=== PATIENT | male | born 1975 | race Caucasian/White ===

== ENCOUNTER 2019-12-09 07:03 | Inpatient (IN) | payer MEDICAID, SELFPAY ==
[~2019-12-09] VITALS: Ht 177.8 cm; Wt 163.8 kg
[2019-12-09] MEDS ORDERED: SODIUM CHLORIDE 0.9% 1,000 ML IV ONE (07:34)
[2019-12-09 08:52] LABS: Basophils # (auto) 0 10 ^3/uL (0-0.2); Basophils % (auto) 0.7 % (0.0-2.0); Eosinophils # (auto) 0.1 10 ^3/uL (0-0.8); Eosinophils % (auto) 2.7 % (0.0-7.0); Hematocrit 52.7 % (41.0-53.0); Hemoglobin 16.2 g/dL (13.5-17.5); Lymphocytes # (auto) 0.9 10 ^3/uL (0.4-5.4); Lymphocytes % (auto) 18.4 % (10.0-50.0); Mean Corpuscular Hgb Conc. 30.7 g/dL (32.0-36.0); Mean Corpuscular Volume 84.8 fL (80.0-100.0); Monocytes # (auto) 0.5 10 ^3/uL (0-1.3); Monocytes % (auto) 10.5 % (0.0-12.0); Neutrophils # (auto) 3.4 10 ^3/uL (1.6-8.6); Neutrophils % (auto) 67.7 % (37.0-80.0); Nucleated Red Blood Cells % 0.4 %; Platelet Count (auto) 207 10^3/uL (140-450); Red Blood Cells 6.22 10^6/uL (4.5-5.90)
[2019-12-09 08:57] LABS: INR 1.35 (0.9-1.15); Partial Thromboplastin Time 25.7 sec (23.64-32.05)
[2019-12-09 09:01] LABS: Calcium 8.2 mg/dL (8.5-10.1); Potassium 4.3 mmol/L (3.5-5.1)
[2019-12-09 09:06] LABS: BUN/Creatinine Ratio 16.3; Bilirubin, Total 0.9 mg/dL (0.2-1.0); Total Protein 6.9 g/dL (6.4-8.2)
[2019-12-09] MEDS ORDERED: SILVER SULFADIAZINE 1 % TOPICAL CREAM 50GM TOP ONE (09:15)
[2019-12-09] MEDS ORDERED: IOHEXOL 350 MG/ML 100ML IJ ONE (09:20)
[2019-12-09] MEDS ORDERED: FUROSEMIDE 40 MG/4 ML VIAL IV ONE (12:15)
[2019-12-09] MEDS ORDERED: SPIRONOLACTONE 25 MG TAB PO ONE (12:15)
[2019-12-09] MEDS ORDERED: FUROSEMIDE 100 MG/10ML VIAL IV ONE (12:30)
[2019-12-09 12:58] LABS: Urine Amorphous Crystal FEW /hpf (None Seen); Urine Bacteria FEW /hpf (None Seen); Urine Blood Negative /uL (Negative); Urine Hyaline Cast MOD /lpf (0 - 2); Urine Mucus FEW (None Seen); Urine Specific Gravity 1.013 (1.001-1.035); Urine WBC 2 /hpf (0 - 3)
[2019-12-09 13:06] LABS: Alcohol, Urine < 3.0 mg/dL (0-5); Amphetamine Screen, Urine NEGATIVE (NEGATIVE); Barbiturate Scree,Urine NEGATIVE (NEGATIVE); Benzodiazephine Screen, Urine NEGATIVE (NEGATIVE); Cannabinoid Screen, Urine NEGATIVE (NEGATIVE); Cocaine Screen, Urine NEGATIVE (NEGATIVE); Opiate Scree,Urine NEGATIVE (NEGATIVE); Phencyclidine Screen, Urine NEGATIVE (NEGATIVE)
[2019-12-09] MEDS ORDERED: HYDROmorphone HCL 2 MG/ML VL IV ONE (14:15)
[2019-12-09] MEDS ORDERED: PROMETHAZINE HCL 25 MG/ML 1ML IV ONE (14:15)
[2019-12-09] MEDS ORDERED: ONDANSETRON HCL 4 MG/2 ML VIAL IV PRN (16:00)
[2019-12-09] MEDS ORDERED: NITROGLYCERIN 0.4 MG SL TAB SL PRN (16:00)
[2019-12-09] MEDS ORDERED: MORPHINE SULF INJ 2 MG/ML SYRINGE 1ML IV PRN (16:00)
[2019-12-09] MEDS ORDERED: ENALAPRILAT 1.25 MG/ML-1ML VIAL IV ONE (16:00)
[2019-12-09] MEDS ORDERED: levoFLOXacin 500MG 100 ML IV ONE (16:00)
[2019-12-09] MEDS ORDERED: LACTULOSE 20Gm/30ML SOLN PO PRN (16:00)
[2019-12-09] MEDS ORDERED: ACETAMINOPHEN 500 MG TAB PO PRN (16:00)
[2019-12-09] MEDS ORDERED: ASPirin 81 mg TAB PO ONE (16:30)
--- NOTE | 2019-12-09 17:39 | NUR ---
BARIATRIC BED: Total care Bariatric Bed [facility] at [facility],Reference # [id number]; ETA 12/09/19 @1610, Call Nicolas Hogan if need to follow up at [phone] Addendum: 12/09/19 at 1741 by Samantha De La Fuente RN Amended: Links added.
--- NOTE | 2019-12-09 18:22 | NUR ---
WOUND CARE NOTE: Wound care in to see patient per wound care request regarding BLE wounds that are noted present on admission. Patient is 44 years old male with admitting diagnosis of heart Failure, Abd wall cellulitis, LE Cellulitis. Patient is resting in ER bed #12. Patient's eyes are closed, respond to tactile and painful stimuli. Patient's ER nurse, ASH Almeida reported that patient recently medicated. Noted patient's BLE has weeping edema and erythema with multi open ulceration. Rt caraballo has 9x3cm open ulceration with red wound bed. Rt calf has 2x2 cm open ulceration with yellow slough. L lateral lower leg and calf has multi open ulceration (1x1cm) with red wound bed and multi open and closed serum blisters to L posterolateral lower leg. Patient's BLE are weeping with moderate amount of serous drainage, no odor noted. Wound culture specimen reported taken and sent to lab for processing. Cleansed BLE wounds with wound cleanser and photograph are taken for reference. Applied Thera honey gauze to multi open ulceration, covered with Opti lock dressing and secured with Stockinette. Patient noted with large abdominal girth and very erythremic to upper and lower abdominal area. Unable to turn to assess sacral and back as patient is obese and not helping in turning, requiring max assist in turning. Patient tolerated well. Patient has pending cardiology consult. RECOMMENDATION: Nursing to continue with Daily/PRN dressing change BLE wound per MD order,BID/PRN cleaning and application of Barrier cream to sacral buttocks, abdominal fold as preventative, Dietary consult, frequent turning and repositioning schedule as condition permits,redistribute pressure points with pillows, Bariatric air bed (ordered), elevate affected extremity on pillows,continue monitoring by wound care while patient is hospitalized. Addendum: 12/09/19 at 1901 by Samantha De La Fuente RN Amended: Links added. Addendum: 12/10/19 at 1817 by Samantha De La Fuente RN 12/10/19 @ 1040 Wound care able to assess patient's sacral and back with the assistance of patient's bedside nurse, ASH Guido. NO wound noted other than blanchable mild redness to buttocks. Applied Z Guard cream as preventative.
[2019-12-09 18:52] VITALS: BP 142/75
[2019-12-09 20:30] VITALS: BP 145/62
--- NOTE | 2019-12-09 20:40 | NUR ---
PT TRANSPORTED TO [facility] 264 ON AN 8 LPM OXYMIZER AND TOLERATING WELL. SAT 94%. BIPAP PLACED AT BEDSIDE AND PT LEFT ON OXYMIZER. RN MATTI TO CALL IF PT NEEDS BIPAP OR BECOMES DISTRESSED.
[2019-12-09 20:43] VITALS: BP 153/87
--- NOTE | 2019-12-09 20:50 | NUR ---
RECEIVED REPORT FROM ER NURSE POC REVIEWED, PT TRANSFERRED INTO RM 264, RESP EVEN AND UNLABORED, PLACED ON OX 9 L, POSITIONED WITH HOB UP, ALL QUESTIONS AND CONCERNS ADDRESSED
[2019-12-09 21:20] VITALS: BP 153/87
[2019-12-09] MEDS: ATORVASTATIN 20 MG TAB PO SCH (21:31)
[2019-12-09] MEDS: traMADol HCL 50 MG TAB PO PRN (21:31)
[2019-12-09] MEDS: CARVEDILOL 3.125 MG TAB PO SCH (21:31)
[2019-12-09] MEDS: CLINDAMYCIN 600MG IV 50 ML IV SCH (21:32)
--- NOTE | 2019-12-09 22:25 | NUR ---
PAIN RELIEVED WITH MED GIVEN, RESTING WITH HOB UP RESP EVEN AND UNLABORED ON 9 liter oximizer sats 92%
[2019-12-10] VITALS (8 sets, daily range): BP systolic 97–134; BP diastolic 57–94
[2019-12-10 03:38] LABS: Basophils # (auto) 0 10 ^3/uL (0-0.2); Eosinophils # (auto) 0.1 10 ^3/uL (0-0.8); Eosinophils % (auto) 0.9 % (0.0-7.0); Lymphocytes # (auto) 0.6 10 ^3/uL (0.4-5.4); Mean Corpuscular Hgb Conc. 29.6 g/dL (32.0-36.0); Monocytes # (auto) 0.6 10 ^3/uL (0-1.3); White Blood Cell 6.6 10^3/uL (4.4-10.8)
[2019-12-10 03:39] LABS: Basophils % (auto) 0.3 % (0.0-2.0); Hematocrit 54.1 % (41.0-53.0); Lymphocytes % (auto) 8.7 % (10.0-50.0); Mean Corpuscular Hemoglobin 25.7 pg (28.0-32.0); Mean Corpuscular Volume 86.8 fL (80.0-100.0); Monocytes % (auto) 8.7 % (0.0-12.0); Neutrophils # (auto) 5.4 10 ^3/uL (1.6-8.6); Neutrophils % (auto) 81.4 % (37.0-80.0); Nucleated Red Blood Cells % 0.4 %; Platelet Count (auto) 224 10^3/uL (140-450); Red Blood Cells 6.24 10^6/uL (4.5-5.90)
[2019-12-10 03:53] LABS: BUN/Creatinine Ratio 17.5; Potassium 4.6 mmol/L (3.5-5.1)
--- NOTE | 2019-12-10 03:53 | NUR ---
NO CHANGE RESTING WITH HOB UP RESP EVEN AND UNLABORED, NURSE CALL LIGHT WITHIN REACH
[2019-12-10 03:58] LABS: Bilirubin, Total 1.3 mg/dL (0.2-1.0); Total Protein 7.1 g/dL (6.4-8.2)
[2019-12-10] MEDS ORDERED: FUROSEMIDE 20 MG/2 ML VIAL ONE (06:36)
[2019-12-10] MEDS: CLINDAMYCIN 600MG IV 50 ML IV SCH ×3 (06:43→22:00)
[2019-12-10] MEDS: LEVOTHYROXINE SODIUM 25 MCG TAB PO SCH (06:44)
--- NOTE | 2019-12-10 07:30 | NUR ---
REPORT GIVEN TO AM NURSE POC REVIEWED
[2019-12-10] MEDS: ALBUTEROL SULF 2.5 MG/0.5ML(0.5%) NEB SOLN NEB PRN (07:53)
[2019-12-10] MEDS: levoFLOXacin 500MG 100 ML IV SCH (09:36)
[2019-12-10] MEDS: FUROSEMIDE 100 MG/10ML VIAL IV SCH (09:36)
[2019-12-10] MEDS: POTASSIUM CHL 20 Meq TABLET PO SCH (09:37)
[2019-12-10] MEDS: CARVEDILOL 3.125 MG TAB PO SCH ×2 (09:37→22:00)
[2019-12-10] MEDS: ASPirin 81 mg TAB PO SCH (09:37)
[2019-12-10] MEDS: ENALAPRIL MALEATE 2.5 MG TAB PO SCH (09:38)
[2019-12-10] MEDS: ENOXAPARIN SOD 40 MG/0.4 ML SYRINGE SC SCH (09:38)
[2019-12-10] MEDS ORDERED: levoFLOXacin 500MG 100 ML IV SCH (10:00)
[2019-12-10] MEDS ORDERED: ASPirin 81 mg TAB PO SCH ×2 (10:00)
[2019-12-10] MEDS ORDERED: OPTISON 3ml Vial for INJ IV ONE ×2 (11:15→11:17)
--- NOTE | 2019-12-10 14:07 | NUR ---
AT BEDSIDE MD CHAMBERS AT BEDSIDE.PT BEING PLACED ON BIPAP.
--- NOTE | 2019-12-10 14:22 | NUR ---
Nutrition Assessment Notes Please refer to link for full assessment notes. Est Energy needs: 7804-2285 kcals (12-14 kcal/kgBW) Est Protein needs: 81-101 gms/day (0.8-1.0 gm/kgAdjBW) Will continue to monitor and reassess prn. Addendum: 12/10/19 at [address] Amended: Links added.
--- NOTE | 2019-12-10 15:35 | NUR ---
INCREASED FI02 TO 50% AND READJUSTED PT'S MASK. SATS IMPROVED TO 92%. Addendum: 12/10/19 at 1625 by Lulu Perea RT Amended: Links added.
--- NOTE | 2019-12-10 15:50 | NUR ---
PT SLEEPING ON BIPAP. NO DISTRESS NOTED.
[2019-12-10] MEDS: traMADol HCL 50 MG TAB PO PRN (18:22)
--- NOTE | 2019-12-10 18:27 | NUR ---
BILATERAL DRESSING CHANGED PER WOUND NURSE. PT TOLERATED AND MEDICATED FOR PAIN.
--- NOTE | 2019-12-10 19:30 | NUR ---
Opening Shift Note Received pt on BIPAP. Sitting up in bed sats 95%. Pt alert and oriented times four. Full assessment done see interventions. Bed locked in lowest position. On bariatric specialty bed. Villasenor catheter secured below bladder, draining yellow urine. All questions and concerns addressed at this time.
--- NOTE | 2019-12-10 21:30 | NUR ---
Placed pt on high flow oxymizer at 15L to allow pt to eat dinner. Will place back on bipap after he's done eating. Respirations even and unlabored.
[2019-12-10] MEDS: ATORVASTATIN 20 MG TAB PO SCH (22:00)
--- NOTE | 2019-12-10 22:30 | NUR ---
Pt placed back on bipap at current settings.
[2019-12-11] VITALS (15 sets, daily range): BP systolic 103–117; BP diastolic 54–78
--- NOTE | 2019-12-11 05:17 | NUR ---
Pt requesting to be taken off bipap. Oxymizer placed back on.
--- NOTE | 2019-12-11 06:22 | NUR ---
Respiratory note: Received pt from overnight cashier RT. Pt off BIPAP, wearing 15LPM oxymizer, HR 71, RR 14, SPO2 92%. Pt awake and alert, resting comfortably in bed, pt denies SOB, no s/s of respiratory distress noted. Breath sounds diminished throughout. PRN medneb tx not indicated at this time. ABG drawn as ordered, results to follow.
[2019-12-11] MEDS: CLINDAMYCIN 600MG IV 50 ML IV SCH ×3 (06:29→22:00)
--- NOTE | 2019-12-11 06:50 | NUR ---
Placed pt on BIPAP after reviewing ABG results. Pt is on BIPAP plugged into red outlet, fitted with size medium facial mask. Skin assessed, no redness or breakdown noted at this time. Alarms set and audible. Pt is awake and alert, resting comfortably in bed, tolerating BIPAP well, no s/s of respiratory distress noted. Noc shift RN at bedside and aware. Will continue to monitor.
[2019-12-11] MEDS: LEVOTHYROXINE SODIUM 25 MCG TAB PO SCH (06:51)
--- NOTE | 2019-12-11 06:51 | NUR ---
ABG reviewed with RT. Pt placed back on BIPAP with previous ordered settings.
--- NOTE | 2019-12-11 07:17 | NUR ---
Report given to day shift RN.
--- NOTE | 2019-12-11 08:00 | NUR ---
Opening Shift Note Assumed care of patient, patient on Bipap, sleeping at this time, woke up by calling his name. No S/S of distress/SOB or pain noted. Instructed on POC and to call for assist PRN, will continue to monitor for changes Q1hr and PRN.
[2019-12-11 08:11] LABS: Free T4 (Free Thyroxine) 1.13 ng/dL (0.89-1.76)
[2019-12-11 08:13] LABS: Free T3 2.36 pg/mL (2.3-4.2)
--- NOTE | 2019-12-11 08:20 | NUR ---
Changed to Oxymizer 15 LPM for having Breakfast, sitting up with high burns position.
--- NOTE | 2019-12-11 08:45 | NUR ---
Patient had 100 % of Breakfast, plan to place Bipap back at 9.30Am, Informed RT at the bedside as well.
--- NOTE | 2019-12-11 09:25 | NUR ---
Dr. Santos at the bedside, seen patient at this time, plan of care discussed with patient, informed patient about the test (pulmonary function test) after D/C from the hospital.
[2019-12-11] MEDS: FUROSEMIDE 100 MG/10ML VIAL IV SCH (09:29)
[2019-12-11] MEDS: ENOXAPARIN SOD 40 MG/0.4 ML SYRINGE SC SCH (09:29)
[2019-12-11] MEDS: levoFLOXacin 500MG 100 ML IV SCH (09:29)
[2019-12-11] MEDS: ENALAPRIL MALEATE 2.5 MG TAB PO SCH (09:30)
[2019-12-11] MEDS: POTASSIUM CHL 20 Meq TABLET PO SCH (09:30)
[2019-12-11] MEDS: CARVEDILOL 3.125 MG TAB PO SCH ×2 (09:30→22:00)
[2019-12-11] MEDS: ASPirin 81 mg TAB PO SCH (09:30)
--- NOTE | 2019-12-11 09:32 | NUR ---
Called and talked to Dr. Johnston, received order for patient to on BIPAP all the time until MD order to be able to take it off. Informed patient to be NPO from now for BIPAP 24 HOURS, patient made aware, RT at the bedside for BIPAP.
--- NOTE | 2019-12-11 09:32 | NUR ---
Placed pt back on BIPAP on previous settings. Pt to stay on BIPAP, not to take off for lunch/food, RN is aware. Follow-up ABG ordered for 1500. Dr. Santos at bedside. Will carry out orders.
--- NOTE | 2019-12-11 09:40 | NUR ---
Hold Coreg and Enalapril due to HR 59-62/min, BP 108/62mmHg, will continue to monitor and care.
--- NOTE | 2019-12-11 10:56 | NUR ---
Called and spoke to Dr. Santos, confirmed MD that would like to have the ultrasound for both legs again today, called and let Radiology made aware.
--- NOTE | 2019-12-11 11:16 | NUR ---
HR 60-80/min, continue Bipap as a plan. Patient sleeping at this time. RR 14-18/min, O2 saturation 94-96%. Will continue to monitor and care.
--- NOTE | 2019-12-11 13:00 | NUR ---
NPO at this time, able to take a nap. On Bipap, O2 saturation 94-96%, RR 14-18/min.
--- NOTE | 2019-12-11 14:15 | NUR ---
IV insertion IV access obtained, via clean sterile technique by inserting 22 gauge catheter at left hand after 1 attempt. IV secured properly. No trauma to site. Patient tolerated procedure well.
--- NOTE | 2019-12-11 14:30 | NUR ---
IV removal from left AC. IV DC'd with sterile technique, catheter fully intact. Pressure dressing applied to site. Patient tolerated procedure well.
--- NOTE | 2019-12-11 15:15 | NUR ---
Called Dr. Johnston with ABG results, new orders received. Pt to wear BIPAP all night. Follow-up ABG tomorrow morning to be drawn with pt on BIPAP. Educated pt, pt verbalized agreement. Notified RN. Will endorse to noc shift RT.
--- NOTE | 2019-12-11 15:55 | NUR ---
DEPUTY PROGRAM MANAGER DR. CHAMBERS AT BEDSIDE
--- NOTE | 2019-12-11 16:00 | NUR ---
Dr. Johnston at the bedside, seen patient at this time, okay to standby Bipap for Dinner and continue standby after finishing Dinner for 30 minutes then plan to have Bipap on over night, plan made aware.
--- NOTE | 2019-12-11 18:30 | NUR ---
Standby Bipap and changed to Oxymizer for having Dinner.
--- NOTE | 2019-12-11 18:49 | NUR ---
RT NOTE: PT AWAKE AND ALERT EATING DINNER ON 12 LPM OXYMIZER SPO2 92% HR 79, RR 20. NO RESPIRATORY DISTRESS NOTED AT THIS TIME. PT NOTIFIED OF RESPIRATORY CARE PLAN AND NEED OF BIPAP. PT AGREED AND WILL BE PLACED BACK ON BIPAP 30 MINUTED AFTER FINISHING DINNER UNTIL AM.
[2019-12-11] MEDS: ATORVASTATIN 20 MG TAB PO SCH (22:00)
[2019-12-12] VITALS (14 sets, daily range): BP systolic 118–163; BP diastolic 81–108
[2019-12-12] MEDS: CLINDAMYCIN 600MG IV 50 ML IV SCH ×3 (06:00→21:04)
[2019-12-12] MEDS: LEVOTHYROXINE SODIUM 25 MCG TAB PO SCH (06:48)
--- NOTE | 2019-12-12 06:50 | NUR ---
Respiratory note: PT TAKEN OFF BIPAP AND PLACED ON 8 L OXYMIZER. PT IS GRATEFUL TO BE OFF BIPAP AND TOLERATING CHANGE WELL. SPO2 93%. ASH RAMIREZ MADE AWARE OF CHANGES.
--- NOTE | 2019-12-12 08:15 | NUR ---
Opening Shift Note Assumed care of patient, awake and alert. No S/S of distress/SOB or pain. Patient saturation 92% at 8 LPM oxygen via oxymizer. Optilock on BLE. See interventions for complete assessment. Specialty bed locked on low position, side rails up x2, bed alarms on at all times, shaun xavier within reach, instructed on POC and to call for assist PRN, will continue to monitor for changes Q1hr and PRN.
--- NOTE | 2019-12-12 08:45 | NUR ---
Received call from Dr Johnston, updated on patient's status, verbalized understanding. Will carry out new orders.
--- NOTE | 2019-12-12 09:00 | NUR ---
Dr Santos at bedside, updated on patient's status. Patient seen and examined. Will carry out new orders.
[2019-12-12] MEDS: levoFLOXacin 500MG 100 ML IV SCH (10:46)
[2019-12-12] MEDS: ASPirin 81 mg TAB PO SCH (10:47)
[2019-12-12] MEDS: ENALAPRIL MALEATE 2.5 MG TAB PO SCH (10:48)
[2019-12-12] MEDS: CARVEDILOL 3.125 MG TAB PO SCH ×2 (10:48→21:04)
[2019-12-12] MEDS: POTASSIUM CHL 20 Meq TABLET PO SCH (10:48)
[2019-12-12] MEDS: FUROSEMIDE 100 MG/10ML VIAL IV SCH (10:49)
[2019-12-12] MEDS: ENOXAPARIN SOD 40 MG/0.4 ML SYRINGE SC SCH (10:49)
--- NOTE | 2019-12-12 13:00 | NUR ---
Patient out of bed to bedside commode with Aura PT, fall precautions in place. Patient tolerated well.
--- NOTE | 2019-12-12 17:20 | NUR ---
Dr Johnston at bedside, updated on patient's status, verbalized understanding. Patient seen and examined. Received verbal order for social service consult for BIPAP at home. Orders read back and verified. Will carry out.
--- NOTE | 2019-12-12 20:30 | NUR ---
SHIFT OPENING NOTE RECEIVED PATIENT AWAKE, ALERT AND ORIENTED X4. NO SOB, DISTRESS OR PAIN NOTED. ON 10 L OXYMIZER. DURHAM CATH DRAINING YELLOW URINE TO GRAVITY. WOUNDS TO LOWER LEGS WITH DRESSINGS INTACT. ON SPECIALTY BED. PHYSICAL ASSESSMENT COMPLETED, SEE INTERVENTIONS. INSTRUCTED ON POC AND TO CALL FOR ASSIST NEEDED. BED IS IN THE LOWEST POSITION WITH SIDE RAILS P X2, CALL LIGHT IS WITHIN REACH.
[2019-12-12] MEDS: ATORVASTATIN 20 MG TAB PO SCH (21:04)
--- NOTE | 2019-12-12 23:50 | NUR ---
ROUNDS PATIENT IS QUIETLY LAYING IN BED SLEEPING. ON BIPAP. NO SOB, DISTRESS OR PAIN NOTED. WILL CONTINUE TO CLOSELY MONITOR.
--- NOTE | 2019-12-13 00:34 | NUR ---
PT REQUEST TO BE TAKEN OFF BIPAP. PT PLACED ON 8 LPM OXYMIZER AND TOLERATING WELL. HR 61 POX 95% RR 18. PT AWARE TO PAGE IF HE WANTS TO BE PLACED BACK ON BIPAP.
--- NOTE | 2019-12-13 01:15 | NUR ---
MORNING HYGIENE CARE PATIENT HAD A LARGE FORMED BM IN BEDPAN. CLEANSED WITH WARM SOAPY WASH CLOTHES. FULL BED BATH PERFORMED USING WASHCLOTHES. GOWN CHANGED. FULL LINEN CHANGED. PATIENT REPOSITIONED FOR COMFORT. TOLERATED IT WELL.
[2019-12-13 05:00] VITALS: BP 166/109
[2019-12-13] MEDS: CLINDAMYCIN 600MG IV 50 ML IV SCH ×2 (05:40→14:53)
[2019-12-13] MEDS: LEVOTHYROXINE SODIUM 25 MCG TAB PO SCH (05:40)
--- NOTE | 2019-12-13 07:00 | NUR ---
PT ASSESSED FOR PRN HHN TX. PT IS ON 10 L OXYMIZER, SPO2 91%. NO RESPIRATORY DISTRESS. HR87, RR 19. BIPAP AT BEDSIDE AND NOT INDICATED AT THIS TIME. PT AWARE TO HAVE RT PAGED IF TX NEEDED.
--- NOTE | 2019-12-13 07:25 | NUR ---
END OF SHIFT REPORT GIVEN AND CARE ENDORSED TO EDWARD ALEMAN.
[2019-12-13 08:00] VITALS: BP 161/103
--- NOTE | 2019-12-13 08:00 | NUR ---
Opening Shift Note Assumed care of patient, awake and alert. No S/S of distress/SOB or pain. Patient saturation 91% at 10 LPM oxygen via oxymizer. Optilock on BLE, intact. See interventions for complete assessment. Bed locked on low position, side rails up x2, bed alarms on at all times, call xavier within reach, instructed on POC and to call for assist PRN, will continue to monitor for changes Q1hr and PRN.
--- NOTE | 2019-12-13 08:30 | NUR ---
Received call from Power Tool Repair Technician Taylor Baeza regarding patient's home BIPAP stating "Patient don't have insurance, he can't get anything home." Will inform Dr Johnston.
[2019-12-13] MEDS: FUROSEMIDE 100 MG/10ML VIAL IV SCH (09:51)
[2019-12-13] MEDS: levoFLOXacin 500MG 100 ML IV SCH (09:51)
[2019-12-13] MEDS: ASPirin 81 mg TAB PO SCH (09:52)
[2019-12-13] MEDS: CARVEDILOL 3.125 MG TAB PO SCH ×2 (09:52→22:16)
[2019-12-13] MEDS: POTASSIUM CHL 20 Meq TABLET PO SCH (09:53)
[2019-12-13] MEDS: ENALAPRIL MALEATE 2.5 MG TAB PO SCH (09:54)
[2019-12-13] MEDS: ENOXAPARIN SOD 40 MG/0.4 ML SYRINGE SC SCH (09:54)
--- NOTE | 2019-12-13 10:50 | NUR ---
Patient out of bed to bedside commode with PT, fall precautions in place.
--- NOTE | 2019-12-13 10:55 | NUR ---
D/C Planning Regarding social service order for BIPAP. Patient has no insurance so he has no payer source.
--- NOTE | 2019-12-13 11:03 | NUR ---
Received call from Dr Johnston, updated on patient's status, informed patient will be transferring to Tele floor, verbalized understanding. Will carry out new orders.
--- NOTE | 2019-12-13 11:14 | NUR ---
Patient ambulating around nurse station using walker with Willian PT, fall precautions in place. Patient tolerated four laps.
[2019-12-13 11:49] VITALS: BP 158/87
--- NOTE | 2019-12-13 14:55 | NUR ---
assessment Patient is a 44 year old male who is alert and oriented. Patients cognitive abilities are intact. Prior to admission patient lived home with family and functioned independently. Patient informed me he is able to care for his own ADLs. Per patient he will return home to his prior living arrangements post discharge and family will transport him home. Patient has no insurance. Patient will be assessed by Lyndon Zuniga of [facility]. Patient may qualify for Medi-shaun if she brings back all her paperwork. I have provided patient with resources for [facility], Dr. Vargas, and [facility] urgent care for follow up visits. I have provided patient with a prescription card from community assistance program. Patient informed me he has no safety concerns regarding returning home on discharge. Patient may need home 02 on discharge, but has no payer source. Patient is not working at this time. I informed patient he has a right to speak to a social insurance administrator regarding all care. I informed patient he has a right to participate in any and all discharge planning. Patient does not have a POA and advanced directive. I have offered patient information on POA and advanced directives. I informed the patient the advantages and benefits of having an Advanced Directive. Patient verbalized understanding and agreed to discharge plan. Addendum: 12/13/19 at 1459 by Taylor ACHARYA Amended: Links added.
--- NOTE | 2019-12-13 14:55 | NUR ---
[facility] pt transferred to floor SARAH CHINO transferred to Tele via specialty bed on patient monitor and portable 02. All patient medications and personal belongings including eye glasses, cellphone with polishing machine operator helper transfered with patient to receiving floor. Patient care transfered to Nicolasa ALEMAN.
--- NOTE | 2019-12-13 15:07 | NUR ---
Pt Arrived on Unit Pt arrived on unit from [facility]. Pt is a/ox4 with no s/s of distress or SOB. Pt currently on 10L via oxymizer. Villasenor catheter is present, free of kinks. Safety measures maintained with call light within reach, bed in lowest position and side rails up. Will continue to monitor.
[2019-12-13 15:11] VITALS: BP 146/81
[2019-12-13] MEDS: ceFAZolin 2 GM in D5W 5% 100 ML IV SCH (18:28)
--- NOTE | 2019-12-13 18:33 | NUR ---
Dr Johnston at Bedside MD to see pt. Discussed POC with pt and the need to use bipap. No new orders at this time. Will continue to monitor.
--- NOTE | 2019-12-13 19:40 | NUR ---
Opening Shift Note Assumed care of patient, awake and alert. No S/S of distress/SOB or pain. Instructed on POC and to call for assist PRN. Bed in lowest locked position, call light within reach, side rails up x2, fall precautions in place. Will continue to monitor for changes Q1hr and PRN.
[2019-12-13] MEDS ORDERED: levoFLOXacin 250MG 50 ML IV ONE (20:00)
[2019-12-13 22:00] VITALS: BP 125/87
[2019-12-13] MEDS: ATORVASTATIN 20 MG TAB PO SCH (22:16)
[2019-12-14] MEDS: ceFAZolin 2 GM in D5W 5% 100 ML IV SCH ×3 (01:47→17:59)
[2019-12-14 05:17] VITALS: BP 128/76
[2019-12-14 05:30] LABS: Eosinophils # (auto) 0.2 10 ^3/uL (0-0.8); Lymphocytes # (auto) 0.5 10 ^3/uL (0.4-5.4); Monocytes # (auto) 0.5 10 ^3/uL (0-1.3); Neutrophils # (auto) 3.9 10 ^3/uL (1.6-8.6); Nucleated Red Blood Cells % 0.2 %; Platelet Count (auto) 152 10^3/uL (140-450)
[2019-12-14 05:32] LABS: Basophils # (auto) 0 10 ^3/uL (0-0.2); Basophils % (auto) 0.4 % (0.0-2.0); Eosinophils % (auto) 3.8 % (0.0-7.0); Hematocrit 49.4 % (41.0-53.0); Hemoglobin 15.4 g/dL (13.5-17.5); Lymphocytes % (auto) 9.6 % (10.0-50.0); Mean Corpuscular Hgb Conc. 31.2 g/dL (32.0-36.0); Mean Corpuscular Volume 83.4 fL (80.0-100.0); Monocytes % (auto) 9.7 % (0.0-12.0); Neutrophils % (auto) 76.5 % (37.0-80.0); Red Blood Cells 5.93 10^6/uL (4.5-5.90); Red Cell Distribution Width 19.9 % (11.8-14.3); White Blood Cell 5.1 10^3/uL (4.4-10.8)
[2019-12-14 05:53] LABS: BUN/Creatinine Ratio 24.4; Calcium 8.6 mg/dL (8.5-10.1); Potassium 4.3 mmol/L (3.5-5.1)
[2019-12-14] MEDS: LEVOTHYROXINE SODIUM 25 MCG TAB PO SCH (06:51)
--- NOTE | 2019-12-14 07:50 | NUR ---
Opening Note Assumed pt care from NOC RN. Pt is a/ox4 with no s/s of distress or SOB. Pt is currently sitting upright in bed with no complaints at this time. Pt is currently on 10L via oxymizer. Villasenor catheter is present, draining to gravity. Discussed POC with pt and need to perform wound care today; pt verbalized understanding. Safety measures maintained with call light within reach, bed in lowest position and side rails up. Will continue to monitor.
[2019-12-14 09:00] VITALS: BP 159/96
[2019-12-14] MEDS: ENOXAPARIN SOD 40 MG/0.4 ML SYRINGE SC SCH (09:15)
[2019-12-14] MEDS: levoFLOXacin 750MG 150 ML IV SCH (09:15)
[2019-12-14] MEDS: FUROSEMIDE 100 MG/10ML VIAL IV SCH (09:16)
[2019-12-14] MEDS: ENALAPRIL MALEATE 2.5 MG TAB PO SCH (09:17)
[2019-12-14] MEDS: CARVEDILOL 3.125 MG TAB PO SCH ×2 (09:18→22:09)
[2019-12-14] MEDS: POTASSIUM CHL 20 Meq TABLET PO SCH (09:19)
[2019-12-14] MEDS: ASPirin 81 mg TAB PO SCH (09:19)
--- NOTE | 2019-12-14 10:21 | NUR ---
Dr. Santos at bedside DrDaren to see patient, discussed plan of care with him. Discussed need for social service consult for insurance. Discussed importance of bipap and oxygen with patient. MD request we ulises cabrera. Will continue to monitor. Signed: 12/14/19 at 1028 by AARTI MACHADO SN <Co-Signature Required> Co-Signed: 12/14/19 at 1028 by MARIAH KIRK RN RN
--- NOTE | 2019-12-14 11:25 | NUR ---
PERLA Villasenor Discontinued Villasenor per MD request. Patient educated on need to monitor voiding needs. Instructed to call for assistance, provided with a urinal, call light within reach. 2825ml removed from Villasenor. Signed: 12/14/19 at 1128 by AARTI MACHADO <Co-Signature Required> Co-Signed: 12/14/19 at 1128 by MARIAH KIRK RN RN Addendum: 12/14/19 at 1220 by MARIAH KIRK RN RN Pt since voided since d/c of rick Signed: 12/14/19 at 1220 by MARIAH KIRK RN RN
--- NOTE | 2019-12-14 11:28 | NUR ---
Wound care complete Wound care complete as per MD orders. Patient tolerated well. Minimal drainage noted to wounds. Will continue to monitor. Signed: 12/14/19 at 1129 by AARTI MACHADO SN <Co-Signature Required> Co-Signed: 12/14/19 at 1129 by MARIAH KIRK RN RN
--- NOTE | 2019-12-14 12:19 | NUR ---
Elevated BP Reported BP of 185/112 with a HR of 94 reported. Reassessed pt, currently asymptomatic. New BP is 155/94 with a HR of 90. Will continue to monitor.
--- NOTE | 2019-12-14 12:25 | NUR ---
D/C Planning Per SS consult patient needing home 02. Advised ASH Monson at 12:23 needed a complete order for home O2 and provided her with a monthly rental pricing for patient.
--- NOTE | 2019-12-14 12:48 | NUR ---
Nutrition Follow-up Wt.: 177.6 kg Pt was with MD at bedside when rounded this am. per records pt with acute resp failure and CHF. pt with no distress noted per RN doc. pt is currently on CCHO 60 gm/meal diet with adequate Po of 100% x 3 per RN doc Est Energy needs: 4903-3842 kcals (12-14 kcal/kgBW), Est Protein needs: 81-101 gms/day (0.8-1.0 gm/kgAdjBW). Will continue to monitor and reassess prn. Labs: BUN 19 H, CO2 35 H, ALB 3.0L GI: Pt had 1 BM yesterday per RN doc Skin: Case scale 20 low risk pt with cellulitis per RN doc. refer to WC notes for details PES: 1) Obesity r/t energy intake in excess of energy needs aeb 236% IBW and BMI of 56.3 kg/m2 Recommendations: 1) Continue to closely monitor pt PO intake to meet at least 75% of meals. 2) Refer pt to RD for nutrition education upon D/C 3) Continue current plan of care. 4) F/u mod 3-5 days
[2019-12-14 12:50] VITALS: BP 155/94
--- NOTE | 2019-12-14 13:14 | NUR ---
D/C Planning Provided pt with information regarding O2 out of pocket cost. Pt stated that he would inform us of his decision and thoughts.
--- NOTE | 2019-12-14 14:50 | NUR ---
IV insertion 22 gauge IV inserted into patients right forearm. 2 attempts tried. Instructor present. Patient tolerated well. Discontinued 22 gauge from patients left hand. Catheter intact, pressure applied to site for 3 minutes, wrapped in coban. Patient instructed to keep dressing on for 30 minutes. Signed: 12/14/19 at 1638 by AARTI MACHADO SN <Co-Signature Required> Co-Signed: 12/14/19 at 1638 by MARIAH KIRK RN RN
--- NOTE | 2019-12-14 15:43 | NUR ---
ASSESSED PT FOR PRN MED NEB TX, PT ON 10L OXYMIZER WITH NO DISTRESS NOTED. PT DENIES BEING SOB. SPO2 92%, HR 72, WITH CLEAR DIMINISHED BS. WILL CONTINUE TO MONITOR PT.
[2019-12-14 17:02] VITALS: BP 158/90
--- NOTE | 2019-12-14 19:20 | NUR ---
Opening Shift Note Received report from luisa Monson RN. Assumed care of patient, awake and alert. No S/S of distress/SOB or pain. Patient on specialy bed. Instructed patient to get up slowly and carefully when getting out of bed. Instructed on POC and to call for assist PRN, will continue to monitor for changes Q1hr and PRN. Bed placed in lowest position and call light within reach.
--- NOTE | 2019-12-14 20:31 | NUR ---
Respiratory note: ASSESSMENT FOR PRN MED NEB TX. HR 88, SPO2 94% ON 10L OXYMIZER, RR 20, BS DIMINISHED. PT PRESENTING NO RESPIRATORY DISTRESS AT THIS TIME. PT AWARE TO HAVE RT PAGED IF NEEDED, WILL CONTINUE TO MONITOR.
[2019-12-14 22:00] VITALS: BP 167/100
[2019-12-14] MEDS: ATORVASTATIN 20 MG TAB PO SCH (22:09)
[2019-12-15] MEDS: ENALAPRILAT 1.25 MG/ML-1ML VIAL IV PRN ×3 (00:10→22:13)
--- NOTE | 2019-12-15 00:10 | NUR ---
VASOTEC GIVEN FOR BLOOD PRESSURE OF 166/99. WILL MONITOR.
--- NOTE | 2019-12-15 01:30 | NUR ---
BLOOD PRESSURE RECHECK AFTER VASOTEC IS 151/100. PATIENT IS RESTING IN BED WITH EYES CLOSED, NO DISTRESS NOTED SATURATING AT 95% ON 10 OXYMIZER.
[2019-12-15] MEDS: ceFAZolin 2 GM in D5W 5% 100 ML IV SCH ×3 (01:39→17:48)
--- NOTE | 2019-12-15 03:05 | NUR ---
REPORT GIVEN TO ASH TYLER. PATIENT IS RESTING IN BED WITH EYES CLOSED, NO DISTRESS NOTED SATURATING AT 94% ON 10L OXYMIZER. WILL MONITOR
[2019-12-15 05:47] VITALS: BP 154/114
[2019-12-15] MEDS: LEVOTHYROXINE SODIUM 25 MCG TAB PO SCH (06:27)
--- NOTE | 2019-12-15 08:50 | NUR ---
D/C Planning Patient is agreeing to pay for home O2 until his Med-Darian is active. Provided patient with information on who to contact. I informed Benita with [facility] patient Medi-Darian will be active sometime on January. Patient is not medical stable to discharge he is at 10 l/min OXYMIZER. II Taylor and myself spoke to Dr. Tom Murdock at 08:40am regarding patient oxygen level. Per Dr Santos he will hold patient until his oxygen level is at a safe discharge level. ASH Bernardo was informed.
[2019-12-15] MEDS: levoFLOXacin 750MG 150 ML IV SCH (08:59)
[2019-12-15] MEDS ORDERED: ALBUTEROL SULF 2.5 MG/0.5ML(0.5%) NEB SOLN NEB SCH (09:00)
[2019-12-15 09:03] VITALS: BP 169/101
[2019-12-15] MEDS: FUROSEMIDE 100 MG/10ML VIAL IV SCH ×2 (09:05→17:49)
[2019-12-15] MEDS: ASPirin 81 mg TAB PO SCH (09:05)
[2019-12-15] MEDS: POTASSIUM CHL 20 Meq TABLET PO SCH (09:06)
[2019-12-15] MEDS: CARVEDILOL 3.125 MG TAB PO SCH ×2 (09:06→21:55)
[2019-12-15] MEDS: methylPREDNISolone SOD SUCC 125 MG/2 ML VL IV SCH (09:13)
[2019-12-15] MEDS: ENOXAPARIN SOD 40 MG/0.4 ML SYRINGE SC SCH (09:14)
--- NOTE | 2019-12-15 09:15 | NUR ---
RN requested PT tx later. Addendum: 12/15/19 at 1254 by Jose Wilhelm CARDIOVASCULAR SURGICAL TECH Amended: Links added.
[2019-12-15] MEDS: BUDESONIDE (INHALATION) 0.5 MG/2 ML NEB NEB SCH ×2 (09:17→18:57)
[2019-12-15] MEDS: ALBUTEROL SULF 2.5 MG/0.5ML(0.5%) NEB SOLN NEB SCH ×4 (09:17→22:30)
[2019-12-15] MEDS: IPRATROPIUM BROM 0.5 MG/2.5ML INH SOL NEB SCH ×4 (09:17→22:30)
[2019-12-15] MEDS: ENALAPRIL MALEATE 2.5 MG TAB PO SCH (10:00)
[2019-12-15] MEDS ORDERED: FUROSEMIDE 100 MG/10ML VIAL IV SCH (12:00)
[2019-12-15 12:30] VITALS: BP 164/101
[2019-12-15 13:09] LABS: BUN/Creatinine Ratio 17.1; Magnesium 1.8 mg/dL (1.6-2.6); Phosphorus 3.7 mg/dL (2.5-4.90)
[2019-12-15 17:13] VITALS: BP 152/94
--- NOTE | 2019-12-15 20:00 | NUR ---
Opening Shift Note Assumed care of patient, awake and alert. No S/S of distress/SOB or pain. Instructed on POC and to call for assist PRN, will continue to monitor for changes Q1hr and PRN.Dressing in both legs dry and intact.
--- NOTE | 2019-12-15 20:09 | NUR ---
Medicated with Morphine 2mg.i.v.p for abdominal pain level10/10 as needed, and at 2038, patient no pain noted. Addendum: 12/15/19 at 2307 by Ania Rod RN wrong patient, this note is not for this patient.
[2019-12-15] MEDS: ATORVASTATIN 20 MG TAB PO SCH (21:30)
[2019-12-15 23:11] VITALS: BP 164/87
[2019-12-16] MEDS: IPRATROPIUM BROM 0.5 MG/2.5ML INH SOL NEB SCH ×6 (01:57→23:39)
[2019-12-16] MEDS: ALBUTEROL SULF 2.5 MG/0.5ML(0.5%) NEB SOLN NEB SCH ×6 (01:57→23:39)
[2019-12-16] MEDS: ceFAZolin 2 GM in D5W 5% 100 ML IV SCH ×2 (03:10→20:44)
[2019-12-16 05:16] VITALS: BP 141/97
[2019-12-16] MEDS: FUROSEMIDE 100 MG/10ML VIAL IV SCH ×2 (05:46→17:54)
[2019-12-16 06:23] LABS: BUN/Creatinine Ratio 21.3; Calcium 8.6 mg/dL (8.5-10.1); Magnesium 1.9 mg/dL (1.6-2.6); Phosphorus 5.2 mg/dL (2.5-4.90); Potassium 3.7 mmol/L (3.5-5.1)
[2019-12-16] MEDS: BUDESONIDE (INHALATION) 0.5 MG/2 ML NEB NEB SCH ×2 (06:30→23:40)
[2019-12-16] MEDS: LEVOTHYROXINE SODIUM 25 MCG TAB PO SCH (07:00)
--- NOTE | 2019-12-16 07:26 | NUR ---
Report given to Sathish Richey, no complained of pain the whole night.
[2019-12-16 09:12] VITALS: BP 141/97
[2019-12-16 09:18] VITALS: BP 145/108
[2019-12-16] MEDS: levoFLOXacin 750MG 150 ML IV SCH (09:52)
[2019-12-16] MEDS: methylPREDNISolone SOD SUCC 125 MG/2 ML VL IV SCH (09:53)
[2019-12-16] MEDS: ASPirin 81 mg TAB PO SCH (09:53)
[2019-12-16] MEDS: ENALAPRIL MALEATE 2.5 MG TAB PO SCH (09:54)
[2019-12-16] MEDS: CARVEDILOL 3.125 MG TAB PO SCH ×2 (09:54→21:35)
[2019-12-16] MEDS: POTASSIUM CHL 20 Meq TABLET PO SCH (09:54)
[2019-12-16] MEDS: ENOXAPARIN SOD 40 MG/0.4 ML SYRINGE SC SCH (09:54)
--- NOTE | 2019-12-16 11:00 | NUR ---
Titrated patient down to 6 liters via Oxymizer. Per RT patient must be down to 5 liters Oxymizer or less to switch over to nasal canula. Will monitor for any signs of respiratory distress .
[2019-12-16 12:47] VITALS: BP 141/89
[2019-12-16] MEDS ORDERED: ceFAZolin 2 GM in D5W 5% 100 ML IV SCH (14:00)
--- NOTE | 2019-12-16 17:04 | NUR ---
Wound care completed per wound care order. Patient tolerated procedure well.
[2019-12-16 17:11] VITALS: BP 171/95
[2019-12-16] MEDS: ENALAPRILAT 1.25 MG/ML-1ML VIAL IV PRN (17:56)
[2019-12-16] MEDS: LABETALOL HCL 5 MG/ML 4ML SYRINGE IV PRN (18:25)
--- NOTE | 2019-12-16 18:45 | NUR ---
Called neon technician hospitalist regarding patients increasing blood pressure. Received order, will document and carry out
--- NOTE | 2019-12-16 20:00 | NUR ---
Opening Shift Note Assumed care of patient, awake and alert. No S/S of distress/SOB or pain. Instructed on POC and to call for assist PRN, will continue to monitor for changes Q1hr and PRN.
[2019-12-16] MEDS: ATORVASTATIN 20 MG TAB PO SCH (21:16)
[2019-12-16 22:00] VITALS: BP 116/31
[2019-12-17] MEDS: ALBUTEROL SULF 2.5 MG/0.5ML(0.5%) NEB SOLN NEB SCH ×6 (01:56→22:08)
[2019-12-17] MEDS: IPRATROPIUM BROM 0.5 MG/2.5ML INH SOL NEB SCH ×6 (01:56→22:08)
[2019-12-17] MEDS: ceFAZolin 2 GM in D5W 5% 100 ML IV SCH ×3 (04:50→20:34)
[2019-12-17] MEDS: LABETALOL HCL 5 MG/ML 4ML SYRINGE IV PRN ×4 (04:51→21:37)
[2019-12-17 05:00] VITALS: BP 173/115
[2019-12-17] MEDS: FUROSEMIDE 100 MG/10ML VIAL IV SCH ×2 (05:51→18:01)
[2019-12-17] MEDS: LEVOTHYROXINE SODIUM 25 MCG TAB PO SCH (05:52)
[2019-12-17 07:13] LABS: Potassium 3.6 mmol/L (3.5-5.1)
[2019-12-17 07:19] LABS: BUN/Creatinine Ratio 28.8; Calcium 8.6 mg/dL (8.5-10.1); Phosphorus 3.6 mg/dL (2.5-4.90)
--- NOTE | 2019-12-17 07:31 | NUR ---
Report given to Sathish Richey, patient is resting no distress.
[2019-12-17 09:08] VITALS: BP 169/100
[2019-12-17] MEDS ORDERED: CARVEDILOL 3.125 MG TAB PO SCH (09:30)
[2019-12-17] MEDS: levoFLOXacin 750MG 150 ML IV SCH (09:55)
[2019-12-17] MEDS: ENALAPRIL MALEATE 2.5 MG TAB PO SCH ×2 (09:58→10:00)
[2019-12-17] MEDS: ENOXAPARIN SOD 40 MG/0.4 ML SYRINGE SC SCH (10:00)
[2019-12-17] MEDS: methylPREDNISolone SOD SUCC 125 MG/2 ML VL IV SCH (10:00)
[2019-12-17] MEDS: ASPirin 81 mg TAB PO SCH (10:00)
[2019-12-17] MEDS: POTASSIUM CHL 20 Meq TABLET PO SCH (10:00)
[2019-12-17] MEDS: cloNIDine HCL 0.1 MG TAB PO PRN ×3 (10:04→23:38)
[2019-12-17] MEDS: BUDESONIDE (INHALATION) 0.5 MG/2 ML NEB NEB SCH ×2 (10:22→22:08)
--- NOTE | 2019-12-17 11:49 | NUR ---
Reassessed patient blood pressure 183/106. Dr. Santos notified and no order received. Dr stated to monitor for a couple hours and give the medication time to work then reassess.
[2019-12-17 13:00] VITALS: BP 170/113
--- NOTE | 2019-12-17 13:30 | NUR ---
Wound care nurse Manuel RN at bedside to assess BLE and perform wound care
--- NOTE | 2019-12-17 13:42 | NUR ---
WOUND CARE NOTE: Wound care in to see patient for reevaluation of BLE wounds. Patient continue resting on air bed in Rm 220B. Patient is awake, alert and oriented. He's in no stated pain at this time. He's self turning and repositioning and his Case score is 19. Edema and erythema to patient's BLE looks improving, less edema in comparison to admission. His lower leg and calves continue to display multi open ulceration. Wounds are red with minimal serous drainage, no odor noted. Cleansed BLE wounds with wound cleanser, applied Thera honey gauze to multi open ulceration, covered with large abd pads and secured with Stockinette. New photograph of wounds are taken for reference. Patient's wound care education provided,verbalized understanding. No pressure injury noted. RECOMMENDATION: Change change dressing frequency of BLE wounds from Daily to EOD per MD order, continue with skin/wound plan of care, continue monitoring by wound care while patient is hospitalized. Addendum: 12/17/19 at 1957 by Samantha De La Fuente RN Amended: Links added.
[2019-12-17 14:23] VITALS: BP 164/106
--- NOTE | 2019-12-17 14:39 | NUR ---
Respiratory note: PATIENT TAKEN OFF OXYMIZER AND PLACED ON 5LPM NASAL CANNULA. SPO2 MAINTAINS AT 94%, AND PATIENT HAS NO COMPLAINTS OF ANY SOB OR DIFF BREATHING. ASH JOHNSON MADE AWARE OF CHANGE.
[2019-12-17 16:49] VITALS: BP 185/111
--- NOTE | 2019-12-17 20:00 | NUR ---
Opening Shift Note Assumed care of patient, awake and alert. No S/S of distress/SOB or pain. Instructed on POC and to call for assist PRN, will continue to monitor for changes Q1hr and PRN.Both legs dressing dry and intact.
[2019-12-17] MEDS: ATORVASTATIN 20 MG TAB PO SCH (21:06)
[2019-12-17] MEDS: CARVEDILOL 3.125 MG TAB PO SCH (21:07)
[2019-12-17 21:21] VITALS: BP 181/106
[2019-12-18] MEDS: IPRATROPIUM BROM 0.5 MG/2.5ML INH SOL NEB SCH ×6 (02:25→22:11)
[2019-12-18] MEDS: ALBUTEROL SULF 2.5 MG/0.5ML(0.5%) NEB SOLN NEB SCH ×6 (02:25→22:11)
--- NOTE | 2019-12-18 02:33 | NUR ---
Called/paged Dr. Valle.T called re:blood pressure still high after blood pressure prn med. given clonidine .2mg. p.o, and labetalol 10mg. i.v.p for blood pressure of 181/106, pulse is 75 at around midnight . Waiting for call back. Continue care.
--- NOTE | 2019-12-18 02:41 | NUR ---
returned call Nic Grace. returned call, updated on patient status and reason for call inspite of giving PRN blood pressure medicine ,after rechecked still high and told M.d, that prn med not working, orders received of hydralazine 10mg.i.v.p x one. Continue care.
[2019-12-18] MEDS ORDERED: hydrALAZINE HCL 20 MG/ML VL IV ONE (02:45)
[2019-12-18] MEDS: ceFAZolin 2 GM in D5W 5% 100 ML IV SCH ×3 (04:25→21:35)
[2019-12-18 05:46] VITALS: BP 141/90
[2019-12-18] MEDS: FUROSEMIDE 100 MG/10ML VIAL IV SCH ×2 (05:55→16:56)
[2019-12-18] MEDS: LEVOTHYROXINE SODIUM 25 MCG TAB PO SCH (05:56)
[2019-12-18] MEDS: BUDESONIDE (INHALATION) 0.5 MG/2 ML NEB NEB SCH ×2 (06:27→18:50)
--- NOTE | 2019-12-18 07:25 | NUR ---
REPORT GIVEN TO Sathish COURTNEY, PATIENT IS RESTING NO DISTRESS..
--- NOTE | 2019-12-18 07:43 | NUR ---
Opening Note Assumed pt care from NOC RN. Pt is a/ox4 with no s/s of distress or SOB. Pt is currently sitting in bed with no complaints at this time. Pt is currently on 5L via NC. Discussed POC with pt and pending ABG. Safety measures maintained with call light within reach, bed in lowest position and side rails up. Will continue to monitor for changes.
[2019-12-18] MEDS: ENOXAPARIN SOD 40 MG/0.4 ML SYRINGE SC SCH (08:28)
[2019-12-18] MEDS: methylPREDNISolone SOD SUCC 125 MG/2 ML VL IV SCH (08:28)
[2019-12-18] MEDS: ENALAPRIL MALEATE 2.5 MG TAB PO SCH (08:29)
[2019-12-18] MEDS: CARVEDILOL 3.125 MG TAB PO SCH ×2 (08:29→21:36)
[2019-12-18] MEDS: ASPirin 81 mg TAB PO SCH (08:29)
[2019-12-18] MEDS: levoFLOXacin 750MG 150 ML IV SCH (08:30)
[2019-12-18] MEDS: POTASSIUM CHL 20 Meq TABLET PO SCH (08:30)
[2019-12-18 09:00] VITALS: BP 156/96
--- NOTE | 2019-12-18 09:39 | NUR ---
L 5th Toe Pt states that he accidently dropped an O2 tank on his L 5th toe. Pt states that he is not in any pain but toe is slightly bruised. Will continue to monitor.
--- NOTE | 2019-12-18 10:43 | NUR ---
Dr Santos at Bedside MD to see pt. Discussed POC with pt and plans to d/c pt home now that O2 is in safe D/C range. MD requests that d/c be complete once pt has oxygen set up. Will continue to monitor.
--- NOTE | 2019-12-18 12:38 | NUR ---
IV Insertion and Removal 20 G to pt's R FA inserted. One attempt made. Pt tolerated insertion well. 22G to pt's L FA removed. Catheter was removed fully intact. Site is asymptomatic. Pressure was applied to site for 3 minutes with gauze and then wrapped in coban. Pt instructed to keep dressing on for 30 minutes; pt verbalized understanding.
[2019-12-18 13:00] VITALS: BP 166/98
--- NOTE | 2019-12-18 13:50 | NUR ---
MRSA Nares Sent to Lab
[2019-12-18] MEDS: cloNIDine HCL 0.1 MG TAB PO PRN ×2 (13:56→21:42)
--- NOTE | 2019-12-18 14:53 | NUR ---
Nutrition Follow-up Wt.: 177.6 kg Pt reports appetite is good with no N/V. Pt educated on how to portion foods after discharge per pt request. Pt is currently on CCHO 60 gm/meal diet with adequate po of 92% of meals 12/16 per RN doc Est Energy needs: 5993-1725 kcals (12-14 kcal/kgBW), Est Protein needs: 81-101 gms/day (0.8-1.0 gm/kgAdjBW). Will continue to monitor and reassess prn. Labs: BUN 21 H, CO2 39 H, ALB 3.0L (12/09) GI: Pt had 1 BM today per pt Skin: Case scale 21 low risk pt with cellulitis per RN doc. refer to WC notes for details PES: 1) Obesity r/t energy intake in excess of energy needs aeb 231% IBW and BMI of 53.6 kg/m2 Recommendations: 1) Continue to closely monitor pt PO intake to meet at least 75% of meals. 2) Refer pt to RD for nutrition education upon D/C 3) Continue current plan of care. 4) F/u mod 3-5 days Addendum: 12/18/19 at [address] Pt wt 169.3 kg
--- NOTE | 2019-12-18 16:22 | NUR ---
D/C Plan After speaking with the Oxygen company, pt is unable to pay out of pocket for the cost of his oxygen. Dr Johnston is aware, requested new orders be placed in the mean time. Notified Lupe with psych social worker. Will notify MD of holding of d/c. Addendum: 12/18/19 at 1630 by MARIAH KIRK RN RN Attempted to contact Dr Santos with holding d/c. Unable to leave a message at this time. Notified charge of holding d/c.
--- NOTE | 2019-12-18 16:28 | NUR ---
D/C impregnator helper Kayley informed me after patient spoke to SG regarding home O2, pt is unable to pay out of pocket for the cost of his oxygen. ASH Monson informed me per , Dr. Johnston he will keep patient for two more days.
--- NOTE | 2019-12-18 16:34 | NUR ---
Elevated BP BP of 171/106 with a HR of 62. Pt states that he does feel "stressed" after having discussed POC with O2. Will provide PRN BP medications. Addendum: 12/18/19 at 1812 by MARIAH KIRK RN RN Reassessed BP, currently 162/97 with a HR of 70. No more PRN medications available at this time. Will continue to monitor and initiate stress relieving techniques. Addendum: 12/18/19 at 1856 by MARIAH KIRK RN RN BP reassessed. Sandra 170/97 with a HR of 78. Will provide PRN Labetalol.
[2019-12-18] MEDS: LABETALOL HCL 5 MG/ML 4ML SYRINGE IV PRN ×2 (16:57→18:56)
[2019-12-18 17:21] VITALS: BP 171/106
--- NOTE | 2019-12-18 20:00 | NUR ---
Opening note Patient resting in bed with even and unlabored respirations, no distress noted. Instructed patient on POC, fall precautions and to call for assistance as needed. Patient verbalized understanding. Fall precautions in place with call light within reach.
[2019-12-18] MEDS: ATORVASTATIN 20 MG TAB PO SCH (21:36)
[2019-12-18 22:00] VITALS: BP 169/104
--- NOTE | 2019-12-18 23:15 | NUR ---
RE: safety Patient resting in bed with hand placed on bedside table; eyes closed. Patient noted to be close to the edge of the speciality mattress. This RN attempted to put up the bottom side rail for safety. Safety education provided to the patient when he opened his eyes. Patient refused for bed rail to be up. Patient stated "I don't want it up because I get out of bed on this side. I'm aware and been doing this for the last couple of nights. I won't fall out of the bed. I keep my hand on the table to help." Call light within reach.
--- NOTE | 2019-12-18 23:45 | NUR ---
RE: elevated BP reassessment Patient was resting in bed with eyes closed; respirations even and unlabored. Patient woken up by staff member to reassess BP. Patient startled upon waking. Informed patient of reassessment of BP. Patient verbalized understanding. PRN BP medications have been administered. Will up on-call hospitalist.
[2019-12-19] VITALS (8 sets, daily range): BP systolic 116–199; BP diastolic 77–126
--- NOTE | 2019-12-19 | NUR ---
On-call hospitalist paged RE: elevated BP
--- NOTE | 2019-12-19 00:20 | NUR ---
Notified on-call hospitalist of elevated BP Spoke with Concha Paul. Informed Mr. Paul of administered BP medications with elevated reassessment BP as well as prior administration BP. Mr. Paul verbalized understanding. Mr. Paul replied that patient's BP is elevated on reassessment due to being woken up from a sleep. Paul ordered for patient to not be woken up to reassess his BP. If patient awakens on his own and requests anything or reports symptoms, then reassess BP per Mr. Paul. Patient is asymptomatic. Will continue to monitor per MD orders.
[2019-12-19] MEDS: IPRATROPIUM BROM 0.5 MG/2.5ML INH SOL NEB SCH ×6 (02:20→22:00)
[2019-12-19] MEDS: ALBUTEROL SULF 2.5 MG/0.5ML(0.5%) NEB SOLN NEB SCH ×6 (02:20→22:00)
--- NOTE | 2019-12-19 04:49 | NUR ---
Patient resting in bed with eyes closed Respirations even and unlabored, no distress noted. Fall precautions in place with call light within reach.
[2019-12-19] MEDS: ceFAZolin 2 GM in D5W 5% 100 ML IV SCH ×2 (05:18→13:06)
[2019-12-19] MEDS: FUROSEMIDE 100 MG/10ML VIAL IV SCH ×2 (05:19→17:19)
[2019-12-19] MEDS: LEVOTHYROXINE SODIUM 25 MCG TAB PO SCH (05:20)
[2019-12-19] MEDS: cloNIDine HCL 0.1 MG TAB PO PRN ×2 (05:20→13:51)
[2019-12-19] MEDS: LABETALOL HCL 5 MG/ML 4ML SYRINGE IV PRN ×4 (05:21→15:54)
[2019-12-19] MEDS: BUDESONIDE (INHALATION) 0.5 MG/2 ML NEB NEB SCH ×2 (06:04→22:00)
--- NOTE | 2019-12-19 06:52 | NUR ---
Closing note Patient resting in bed with respirations even and unlabored, no distress noted. Fall precautions in place with call light within reach.
--- NOTE | 2019-12-19 07:12 | NUR ---
Care endorsed to ASH Monson.
[2019-12-19 07:13] LABS: BUN/Creatinine Ratio 33.3; Calcium 8.6 mg/dL (8.5-10.1); Magnesium 2.1 mg/dL (1.6-2.6); Phosphorus 4.2 mg/dL (2.5-4.90); Potassium 3.5 mmol/L (3.5-5.1)
--- NOTE | 2019-12-19 07:37 | NUR ---
Opening Note Assumed pt care from NOC RN. Pt is a/ox4 with no s/s of distress or SOB. Pt is currently sitting upright in bed on 5L via NC. Discussed POC with pt and d/c planning; pt verbalized understanding. Safety measures maintained with call light within reach, bed in lowest position and side rails up. Will continue to monitor.
[2019-12-19] MEDS: ENOXAPARIN SOD 40 MG/0.4 ML SYRINGE SC SCH (09:33)
[2019-12-19] MEDS: methylPREDNISolone SOD SUCC 125 MG/2 ML VL IV SCH (09:33)
[2019-12-19] MEDS: levoFLOXacin 750MG 150 ML IV SCH (09:33)
[2019-12-19] MEDS: CARVEDILOL 3.125 MG TAB PO SCH ×2 (09:34→22:30)
[2019-12-19] MEDS: POTASSIUM CHL 20 Meq TABLET PO SCH (09:34)
[2019-12-19] MEDS: ASPirin 81 mg TAB PO SCH (09:34)
[2019-12-19] MEDS: ENALAPRIL MALEATE 2.5 MG TAB PO SCH (09:34)
--- NOTE | 2019-12-19 10:55 | NUR ---
Dr Santos at Bedside MD to see pt. Discussed POC with pt and plans to d/c once O2 is set up. Arranging with [employer] social [employer] teacher. MD requested that pt utilize Incentive Spirometer as well as ambulate. Will implement and continue to monitor.
--- NOTE | 2019-12-19 14:52 | NUR ---
Wound Care Performed Wound care completed per MD's orders. Pt tolerated care well. Will continue to monitor.
--- NOTE | 2019-12-19 16:21 | NUR ---
Oxygen Delivered to Bedside Pt's personal O2 delivered to bedside.
--- NOTE | 2019-12-19 17:04 | NUR ---
Elevated BP Bp of 161/109 with a HR of 64 reported. Provided PRN Labetalol. Reassessed pt, BP of 189/124 with a HR of 71. Pt denies any pain. Repositioned pt, reassessed BP; 199/126 with a HR of 67. Pt does not have any PRN BP meds. Bharti CHAPARRO Addendum: 12/19/19 at 1708 by MARIAH KIRK RN RN Chaz HEARD pagetato back. Orders given, read back and verified. Will implement. Addendum: 12/19/19 at 1710 by MARIAH KIRK RN RN ORQUIDEA also requests that we hold the d/c.
[2019-12-19] MEDS ORDERED: ISOSORBIDE MONONITRATE ER 60 MG TAB PO ONE (17:15)
[2019-12-19] MEDS ORDERED: hydrALAZINE HCL 20 MG/ML VL IV ONE (17:15)
--- NOTE | 2019-12-19 19:20 | NUR ---
Opening Shift Note Assumed care of patient. Patient is awake and alert. No S/S of distress/SOB or pain. Instructed on POC and to call for assist PRN, will continue to monitor for changes Q1hr and PRN. Bed locked in lowest position and bed rails up x2. Call light within reach.
[2019-12-19] MEDS: ATORVASTATIN 20 MG TAB PO SCH (22:30)
[2019-12-20] MEDS: cloNIDine HCL 0.1 MG TAB PO PRN (02:05)
[2019-12-20] MEDS: IPRATROPIUM BROM 0.5 MG/2.5ML INH SOL NEB SCH ×4 (02:13→14:51)
[2019-12-20] MEDS: ALBUTEROL SULF 2.5 MG/0.5ML(0.5%) NEB SOLN NEB SCH ×4 (02:13→14:51)
[2019-12-20 05:00] VITALS: BP 152/79
[2019-12-20] MEDS: LEVOTHYROXINE SODIUM 25 MCG TAB PO SCH (06:43)
[2019-12-20] MEDS: FUROSEMIDE 100 MG/10ML VIAL IV SCH (06:44)
[2019-12-20] MEDS: LABETALOL HCL 5 MG/ML 4ML SYRINGE IV PRN (06:44)
[2019-12-20 07:29] LABS: BUN/Creatinine Ratio 39.3; Calcium 8.4 mg/dL (8.5-10.1); Magnesium 1.9 mg/dL (1.6-2.6); Phosphorus 3.9 mg/dL (2.5-4.90); Potassium 3.3 mmol/L (3.5-5.1)
[2019-12-20 08:00] VITALS: BP 150/99
--- NOTE | 2019-12-20 08:03 | NUR ---
OPENING SHIFT NOTE Assumed care of patient. PT is awake and alert. No S/S of distress or SOB. Dialysis nurse at bedside for HD. Bed is in low and locked position with side rails up x2. Call light within reach. Instructed on POC and to call for assist PRN, will continue to monitor for changes Q1hr and PRN.
[2019-12-20] MEDS ORDERED: levoFLOXacin 250 MG TAB PO SCH (10:00)
[2019-12-20] MEDS: ENOXAPARIN SOD 40 MG/0.4 ML SYRINGE SC SCH (10:04)
[2019-12-20] MEDS: methylPREDNISolone SOD SUCC 125 MG/2 ML VL IV SCH (10:05)
[2019-12-20] MEDS: ENALAPRIL MALEATE 2.5 MG TAB PO SCH (10:05)
[2019-12-20] MEDS: ASPirin 81 mg TAB PO SCH (10:05)
[2019-12-20] MEDS: POTASSIUM CHL 20 Meq TABLET PO SCH (10:06)
[2019-12-20] MEDS: CARVEDILOL 3.125 MG TAB PO SCH (10:06)
[2019-12-20] MEDS: BUDESONIDE (INHALATION) 0.5 MG/2 ML NEB NEB SCH (10:43)
--- NOTE | 2019-12-20 12:16 | NUR ---
D/C pad extractor tender Will informed me patient oxygen was deliver last night. Per RN Will patient contact SG and paid the amount of 510 via phone.
[2019-12-20] MEDS ORDERED: hydrALAZINE HCL 20 MG/ML VL IV ONE (12:45)
[2019-12-20] MEDS ORDERED: POTASSIUM CHL 20 Meq TABLET PO ONE (12:45)
[2019-12-20] MEDS ORDERED: ISOSORBIDE MONONITRATE ER 60 MG TAB PO ONE (12:45)
--- NOTE | 2019-12-20 13:01 | NUR ---
ELEVATED BP. NOTIFIED MD Avtar ORR. MED ORDERS RECEIVED. WILL CARRY OUT AND REASSESS.
[2019-12-20 15:12] VITALS: BP 134/87
== END 2019-12-20 16:10 | disposition home or self-care (01) | DRG 280 ==
LOC: ER 07:03 → TELE 07:04 → DOU IN ICU 20:30 → TELE-CENTR 12-13 15:02
PROVIDERS: ADMIT Internal Medicine; ATTEND Family Medicine
PROC: 5A09357 Assistance with Respiratory Ventilation, Less than 24 Consecutive Hours, Continuous Positive Airway Pressure (ICD-10-PCS; 2019-12-09)
PROC: 5A09357 Assistance with Respiratory Ventilation, Less than 24 Consecutive Hours, Continuous Positive Airway Pressure (ICD-10-PCS; 2019-12-10)
PROC: 5A09357 Assistance with Respiratory Ventilation, Less than 24 Consecutive Hours, Continuous Positive Airway Pressure (ICD-10-PCS; 2019-12-11)
PROC: 5A09357 Assistance with Respiratory Ventilation, Less than 24 Consecutive Hours, Continuous Positive Airway Pressure (ICD-10-PCS; principal; 2019-12-12)
DX: I11.0 Hypertensive heart disease with heart failure (principal); I21.4 Non-ST elevation (NSTEMI) myocardial infarction; J96.21 Acute and chronic respiratory failure with hypoxia; J96.22 Acute and chronic respiratory failure with hypercapnia; L03.311 Cellulitis of abdominal wall; L03.115 Cellulitis of right lower limb; L03.116 Cellulitis of left lower limb; E44.0 Moderate protein-calorie malnutrition; E87.4 Mixed disorder of acid-base balance; Z68.43 Body mass index [BMI] 50.0-59.9, adult; E66.2 Morbid (severe) obesity with alveolar hypoventilation; I50.33 Acute on chronic diastolic (congestive) heart failure; F17.210 Nicotine dependence, cigarettes, uncomplicated; I87.8 Other specified disorders of veins; E03.9 Hypothyroidism, unspecified; I87.2 Venous insufficiency (chronic) (peripheral); Z83.3 Family history of diabetes mellitus; Z82.49 Family history of ischemic heart disease and other diseases of the circulatory system; Z71.3 Dietary counseling and surveillance; Z79.899 Other long term (current) drug therapy; Z79.51 Long term (current) use of inhaled steroids; Z79.82 Long term (current) use of aspirin; Z11.59 Encounter for screening for other viral diseases
CPT/HCPCS: 36415; 36600; 71045; 71046; 71275; 73620; 74176; 80048; 80053; 80307; 81001; 82550; 82805; 82962; 83735; 83880; 84100; 84439; 84443; 84481; 84484; 85025; 85379; 85610; 85730; 86141; 87077; 87081; 87186; 87205; 93005; 93306; 93970; 94640; 94660; 97116; 97163; 97530; G0378; J0690; J1956; J3490; J7060; Q9956

== ENCOUNTER → 2020-06-28 | Outpatient (CLI) | payer MEDICAID ==
[~2020-06-28] VITALS: Ht 177.8 cm; Wt 143.3 kg
[~2020-06-28] MED LIST: ADENOSINE 120 MG in GIVE UN-DILUTED 0 ML IV ONE; ADENOSINE 90 MG/30 ML INJ IV ONE
== END | disposition home or self-care (01) ==
LOC: Rad HDHVI 08:43
PROVIDERS: ATTEND Internal Medicine Cardiovascular Disease
DX: G47.30 Sleep apnea, unspecified (principal)
CPT/HCPCS: 78452; 93005; 96374; 96375; A9500; J0153

== ENCOUNTER 2024-01-10 01:09 | Inpatient (IN) | payer MEDICAID ==
[~2024-01-10] VITALS: Ht 177.8 cm; Wt 178.0 kg
[2024-01-10 01:51] LABS: Basophils # (auto) 0 10 ^3/uL (0-0.2); Basophils % (auto) 0.5 % (0.0-2.0); Eosinophils # (auto) 0.1 10 ^3/uL (0-0.8); Hemoglobin 17.5 g/dL (13.5-17.5); Monocytes # (auto) 0.4 10 ^3/uL (0-1.3); Red Blood Cells 6.81 10^6/uL (4.5-5.90)
[2024-01-10 01:53] LABS: Eosinophils % (auto) 1.3 % (0.0-7.0); Lymphocytes # (auto) 0.8 10 ^3/uL (0.4-5.4); Lymphocytes % (auto) 13.9 % (10.0-50.0); Mean Corpuscular Hemoglobin 25.8 pg (28.0-32.0); Mean Corpuscular Hgb Conc. 30.5 g/dL (32.0-36.0); Mean Corpuscular Volume 84.5 fL (80.0-100.0); Monocytes % (auto) 7.2 % (0.0-12.0); Neutrophils # (auto) 4.4 10 ^3/uL (1.6-8.6); Neutrophils % (auto) 77.1 % (37.0-80.0); Nucleated Red Blood Cells % 1.5 %; Red Cell Distribution Width 18.7 % (11.8-14.3); White Blood Cell 5.7 10^3/uL (4.4-10.8)
[2024-01-10 01:58] LABS: Hematocrit 57.6 % (41.0-53.0)
[2024-01-10 02:00] VITALS: O2SAT 8
[2024-01-10 02:02] LABS: Chloride 104 mmol/L (98-107); Potassium 3.8 mmol/L (3.5-5.1); Sodium 140 mmol/L (136-145)
[2024-01-10 02:03] LABS: Anion Gap 2 (5-15); Calcium 9.5 mg/dL (8.7-10.4); Carbon Dioxide 34 mmol/L (20-30)
[2024-01-10 02:08] LABS: BUN/Creatinine Ratio 12.6 (10.0-20.0); Blood Urea Nitrogen 15 mg/dL (9-23); Glucose 125 mg/dL (74-106)
[2024-01-10] MEDS: ASPirin 325 MG TAB PO ONE (02:46)
[2024-01-10] MEDS: FUROSEMIDE 100 MG/10ML VIAL IV ONE (02:47)
[2024-01-10] MEDS: NITROGLYCERIN 0.4MG/HR TOPICAL PATCH TD ONE (02:47)
[2024-01-10] MEDS: LABETALOL HCL 5 MG/ML 4ML SYRINGE IV ONE (02:48)
[2024-01-10] MEDS ORDERED: ACETAMINOPHEN 325 MG TAB PO PRN (03:30)
[2024-01-10] MEDS ORDERED: HYDROcodone-ACET 5/325MG TAB PO PRN (03:30)
[2024-01-10] MEDS ORDERED: ONDANSETRON HCL 4 MG/2 ML VIAL IV PRN (03:30)
[2024-01-10] MEDS ORDERED: NITROGLYCERIN 0.4 MG SL TAB SL PRN (03:45)
[2024-01-10] MEDS ORDERED: MORPHINE SULFATE INJ 2 MG/ml SYRG IV PRN (03:45)
[2024-01-10 05:10] LABS: Basophils # (auto) 0 10 ^3/uL (0-0.2); Hematocrit 54.8 % (41.0-53.0); Hemoglobin 16.8 g/dL (13.5-17.5); Lymphocytes # (auto) 0.9 10 ^3/uL (0.4-5.4); Mean Corpuscular Hemoglobin 25.7 pg (28.0-32.0); Mean Corpuscular Hgb Conc. 30.7 g/dL (32.0-36.0); Monocytes # (auto) 0.5 10 ^3/uL (0-1.3); Neutrophils # (auto) 4.5 10 ^3/uL (1.6-8.6); Red Blood Cells 6.55 10^6/uL (4.5-5.90); White Blood Cell 6.1 10^3/uL (4.4-10.8)
[2024-01-10 05:12] LABS: Basophils % (auto) 0.5 % (0.0-2.0); Eosinophils # (auto) 0.2 10 ^3/uL (0-0.8); Eosinophils % (auto) 2.5 % (0.0-7.0); Lymphocytes % (auto) 15.1 % (10.0-50.0); Mean Corpuscular Volume 83.7 fL (80.0-100.0); Monocytes % (auto) 8.2 % (0.0-12.0); Neutrophils % (auto) 73.7 % (37.0-80.0); Nucleated Red Blood Cells % 1.9 %
[2024-01-10] MEDS: SODIUM CHLOR 0.9% PF (SALINE LOCK) 10ML VIAL/SYR IV SCH (05:17)
[2024-01-10 05:24] LABS: Alanine Aminotransferase 9 U/L (7-40); Albumin 3.4 g/dL (3.2-4.8); Alkaline Phosphatase 65 U/L (46-116); Anion Gap 2 (5-15); Aspartate Aminotransferase 25 U/L (13-40); BUN/Creatinine Ratio 10.6 (10.0-20.0); Bilirubin, Total 0.9 mg/dL (0.2-1.0); Blood Urea Nitrogen 12 mg/dL (9-23); Carbon Dioxide 33 mmol/L (20-30); Chloride 104 mmol/L (98-107); Glucose 99 mg/dL (74-106); Potassium 4.4 mmol/L (3.5-5.1); Sodium 139 mmol/L (136-145); Total Protein 6.4 g/dL (5.7-8.2)
[2024-01-10 07:40] VITALS: O2SAT 8
[2024-01-10] MEDS: FUROSEMIDE 40 MG/4 ML VIAL IV SCH ×2 (10:21→18:29)
[2024-01-10] MEDS: CARVEDILOL 12.5 MG TAB PO SCH (10:22)
[2024-01-10] MEDS: ASPirin 81 mg TAB PO SCH (10:22)
[2024-01-10] MEDS: hydrALAZINE HCL 20 MG/ML VL IV PRN (11:24)
[2024-01-10 12:13] LABS: Amphetamine Screen, Urine Neg (NEGATIVE); Barbiturate Scree,Urine Neg (NEGATIVE); Benzodiazephine Screen, Urine Neg (NEGATIVE); Cannabinoid Screen, Urine Neg (NEGATIVE); Cocaine Screen, Urine Neg (NEGATIVE); Opiate Scree,Urine Neg (NEGATIVE); Phencyclidine Screen, Urine Neg (NEGATIVE)
[2024-01-10 12:30] LABS: Urine Bacteria None Seen /hpf (None Seen)
[2024-01-10 12:43] LABS: Urine Blood 2+ /uL (Negative); Urine Clarity Clear (Clear); Urine Color Light-Yellow (Yellow); Urine Hyaline Cast FEW /lpf (0 - 2); Urine Protein, UAD Negative (Negative); Urine Specific Gravity 1.006 (1.001-1.035); Urine Urobilinogen Normal (Negative); Urine WBC <1 /hpf (0 - 3)
[2024-01-10] MEDS: SPIRONOLACTONE 25 MG TAB PO ONE (13:07)
[2024-01-10] MEDS: EMPAGLIFLOZIN 10 MG TAB PO SCH (13:07)
[2024-01-10 19:55] VITALS: PULSE 79; RESP 19; O2SAT 8
[2024-01-10] MEDS: PANTOPRAZOLE 40 MG TAB PO ONE (20:27)
[2024-01-10] MEDS: ENOXAPARIN SOD 40 MG/0.4 ML SYRINGE SC ONE (20:27)
[2024-01-10] MEDS: ATORVASTATIN 20 MG TAB PO SCH (21:53)
[2024-01-10 22:20] VITALS: BP 144/100; PULSE 81; RESP 18; RESP 20; TEMP 97.9; O2SAT 93
[2024-01-10 23:17] VITALS: BP 144/100; PULSE 81; RESP 19; TEMP 97.9; O2SAT 93
[2024-01-11] VITALS (15 sets, daily range): BP systolic 116–172; BP diastolic 70–103; PULSE 70–95; RESP 15–24; TEMP 98–98.2; O2SAT 84–94
[2024-01-11] MEDS: PANTOPRAZOLE 40 MG TAB PO SCH (06:31)
[2024-01-11 06:47] LABS: Basophils # (auto) 0 10 ^3/uL (0-0.2); Lymphocytes # (auto) 0.9 10 ^3/uL (0.4-5.4); Monocytes # (auto) 0.6 10 ^3/uL (0-1.3); Neutrophils # (auto) 5.3 10 ^3/uL (1.6-8.6)
[2024-01-11 06:50] LABS: Basophils % (auto) 0.2 % (0.0-2.0); Eosinophils # (auto) 0.2 10 ^3/uL (0-0.8); Eosinophils % (auto) 2.6 % (0.0-7.0); Hematocrit 55.4 % (41.0-53.0); Hemoglobin 16.7 g/dL (13.5-17.5); Lymphocytes % (auto) 12.3 % (10.0-50.0); Mean Corpuscular Hemoglobin 25.8 pg (28.0-32.0); Mean Corpuscular Hgb Conc. 30.2 g/dL (32.0-36.0); Mean Corpuscular Volume 85.4 fL (80.0-100.0); Monocytes % (auto) 8.9 % (0.0-12.0); Nucleated Red Blood Cells % 0.8 %; Red Blood Cells 6.48 10^6/uL (4.5-5.90); Red Cell Distribution Width 18.4 % (11.8-14.3)
[2024-01-11 07:02] LABS: Alanine Aminotransferase < 9 U/L (7-40); Albumin 3.9 g/dL (3.2-4.8); Alkaline Phosphatase 73 U/L (46-116); Anion Gap 2 (5-15); Aspartate Aminotransferase 18 U/L (13-40); BUN/Creatinine Ratio 12.4 (10.0-20.0); Bilirubin, Total 0.9 mg/dL (0.2-1.0); Blood Urea Nitrogen 14 mg/dL (9-23); Calcium 9.3 mg/dL (8.7-10.4); Carbon Dioxide 37 mmol/L (20-30); Chloride 100 mmol/L (98-107); Glucose 94 mg/dL (74-106); Potassium 4.6 mmol/L (3.5-5.1); Sodium 139 mmol/L (136-145)
[2024-01-11 07:03] LABS: Total Protein 7.1 g/dL (5.7-8.2)
[2024-01-11] MEDS: ENOXAPARIN SOD 40 MG/0.4 ML SYRINGE SC SCH (09:28)
[2024-01-11] MEDS: SACUBITRIL-VALSARTAN 24mg/26mg TAB PO SCH (09:28)
[2024-01-11] MEDS: SPIRONOLACTONE 25 MG TAB PO SCH (09:29)
[2024-01-11 11:45] LABS: Base Excess 8.7 mmol/L (-2.0-2.0)
[2024-01-11] MEDS: levoFLOXacin 500MG 100 ML IV SCH (14:26)
[2024-01-11 16:14] LABS: Base Excess 8.7 mmol/L (-2.0-2.0)
[2024-01-11] MEDS: DOCUSATE SOD 100 MG CAP PO PRN (20:59)
[2024-01-11] MEDS: LORazepam 2MG/ML-1ML VIAL IV PRN (22:41)
[2024-01-12] VITALS (16 sets, daily range): BP systolic 131–171; BP diastolic 86–100; PULSE 77–92; RESP 18–19; TEMP 98–99.2; O2SAT 90–93
[2024-01-12 07:06] LABS: Base Excess 11.1 mmol/L (-2.0-2.0)
[2024-01-12 07:17] LABS: Hemoglobin 16.6 g/dL (13.5-17.5)
[2024-01-12 07:21] LABS: Hematocrit 53.3 % (41.0-53.0); Mean Corpuscular Hemoglobin 26.1 pg (28.0-32.0); Mean Corpuscular Hgb Conc. 31.2 g/dL (32.0-36.0); Mean Corpuscular Volume 83.6 fL (80.0-100.0); Red Blood Cells 6.38 10^6/uL (4.5-5.90); Red Cell Distribution Width 18.7 % (11.8-14.3); White Blood Cell 5.7 10^3/uL (4.4-10.8)
[2024-01-12 07:27] LABS: Band Neutrophils % (manual) 0; Basophils % (manual) 0 (0.0-2.0); Blast Cells 0; Metamyelocytes % 0; Myelocytes % 0; Promyelocytes % 0
[2024-01-12 07:48] LABS: Chloride 96 mmol/L (98-107); Sodium 141 mmol/L (136-145)
[2024-01-12 07:49] LABS: Calcium 9.1 mg/dL (8.7-10.4)
[2024-01-12 07:54] LABS: BUN/Creatinine Ratio 13.7 (10.0-20.0); Blood Urea Nitrogen 14 mg/dL (9-23); Glucose 85 mg/dL (74-106)
[2024-01-12 07:55] LABS: Anion Gap 4.99999 (5-15)
[2024-01-12 07:59] LABS: Carbon Dioxide > 40 mmol/L (20-30)
[2024-01-12 08:39] LABS: Eosinophils % (manual) 1 (0-7); Lymphocytes % (manual) 13 (10.0-50.0); Monocytes % (manual) 7 (0-12); Platelet Estimate Adequate; Reactive Lymphocytes 3
[2024-01-12 17:58] LABS: Base Excess 15.4 mmol/L (-2.0-2.0)
[2024-01-12] MEDS: LORazepam 2MG/ML-1ML VIAL IV PRN (23:28)
[2024-01-13] VITALS (12 sets, daily range): BP systolic 114–166; BP diastolic 60–116; PULSE 70–93; RESP 17–22; TEMP 98–98.9; O2SAT 90–100
[2024-01-13 07:44] LABS: Chloride 97 mmol/L (98-107); Potassium 3.6 mmol/L (3.5-5.1); Sodium 141 mmol/L (136-145)
[2024-01-13 07:45] LABS: Calcium 9.3 mg/dL (8.5-10.1)
[2024-01-13 07:48] LABS: Basophils # (auto) 0 10 ^3/uL (0-0.2); Basophils % (auto) 0.5 % (0.0-2.0); Eosinophils # (auto) 0.2 10 ^3/uL (0-0.8); Eosinophils % (auto) 3.7 % (0.0-7.0); Hematocrit 53.6 % (41.0-53.0); Hemoglobin 16.5 g/dL (13.5-17.5); Lymphocytes # (auto) 0.8 10 ^3/uL (0.4-5.4); Lymphocytes % (auto) 14.2 % (10.0-50.0); Mean Corpuscular Hemoglobin 25.5 pg (28.0-32.0); Mean Corpuscular Hgb Conc. 30.8 g/dL (32.0-36.0); Mean Corpuscular Volume 82.8 fL (80.0-100.0); Monocytes # (auto) 0.5 10 ^3/uL (0-1.3); Monocytes % (auto) 9.7 % (0.0-12.0); Neutrophils # (auto) 3.9 10 ^3/uL (1.6-8.6); Neutrophils % (auto) 71.9 % (37.0-80.0); Nucleated Red Blood Cells % 1.1 %; Red Blood Cells 6.48 10^6/uL (4.5-5.90); Red Cell Distribution Width 18.1 % (11.8-14.3); White Blood Cell 5.4 10^3/uL (4.4-10.8)
[2024-01-13 07:50] LABS: BUN/Creatinine Ratio 13.6 (10.0-20.0); Blood Urea Nitrogen 12 mg/dL (9-23); Glucose 90 mg/dL (74-106)
[2024-01-13 07:53] LABS: Anion Gap 3.99999 (5-15); Carbon Dioxide > 40 mmol/L (20-30)
[2024-01-13 16:43] LABS: Base Excess 13.3 mmol/L (-2.0-2.0)
[2024-01-14] VITALS (11 sets, daily range): BP systolic 129–160; BP diastolic 67–116; PULSE 78–102; RESP 19–20; TEMP 97.8–98.9; O2SAT 91–97
[2024-01-14] MEDS: hydrALAZINE HCL 20 MG/ML VL IV ONE (01:17)
[2024-01-14 07:10] LABS: Chloride 97 mmol/L (98-107); Potassium 3.4 mmol/L (3.5-5.1); Sodium 141 mmol/L (136-145)
[2024-01-14 07:11] LABS: Calcium 9.3 mg/dL (8.5-10.1)
[2024-01-14 07:16] LABS: BUN/Creatinine Ratio 15.4 (10.0-20.0); Blood Urea Nitrogen 12 mg/dL (9-23); Glucose 85 mg/dL (74-106)
[2024-01-14 07:25] LABS: Carbon Dioxide > 40 mmol/L (20-30)
[2024-01-14 07:37] LABS: Basophils # (auto) 0 10 ^3/uL (0-0.2); Basophils % (auto) 0.5 % (0.0-2.0); Eosinophils # (auto) 0.2 10 ^3/uL (0-0.8); Eosinophils % (auto) 3.7 % (0.0-7.0); Hematocrit 52.7 % (41.0-53.0); Hemoglobin 16.7 g/dL (13.5-17.5); Lymphocytes # (auto) 0.6 10 ^3/uL (0.4-5.4); Lymphocytes % (auto) 12.3 % (10.0-50.0); Mean Corpuscular Hgb Conc. 31.8 g/dL (32.0-36.0); Mean Corpuscular Volume 81.9 fL (80.0-100.0); Monocytes # (auto) 0.6 10 ^3/uL (0-1.3); Neutrophils # (auto) 3.7 10 ^3/uL (1.6-8.6); Neutrophils % (auto) 72.5 % (37.0-80.0); Nucleated Red Blood Cells % 1.5 %; Red Blood Cells 6.43 10^6/uL (4.5-5.90); Red Cell Distribution Width 18.4 % (11.8-14.3); White Blood Cell 5.2 10^3/uL (4.4-10.8)
[2024-01-14 08:38] LABS: Base Excess 11.3 mmol/L (-2.0-2.0)
[2024-01-14] MEDS: POTASSIUM CHL 20 Meq TABLET PO ONE (09:32)
[2024-01-15] VITALS (11 sets, daily range): BP systolic 128–161; BP diastolic 66–108; PULSE 61–92; RESP 16–87; TEMP 97.6–98; O2SAT 86–99
[2024-01-15 12:08] LABS: Basophils # (auto) 0 10 ^3/uL (0-0.2); Basophils % (auto) 0.5 % (0.0-2.0); Eosinophils # (auto) 0.3 10 ^3/uL (0-0.8); Hematocrit 53.1 % (41.0-53.0); Hemoglobin 16.6 g/dL (13.5-17.5); Lymphocytes # (auto) 0.7 10 ^3/uL (0.4-5.4); Lymphocytes % (auto) 12.8 % (10.0-50.0); Mean Corpuscular Hemoglobin 25.8 pg (28.0-32.0); Mean Corpuscular Hgb Conc. 31.4 g/dL (32.0-36.0); Mean Corpuscular Volume 82.2 fL (80.0-100.0); Monocytes # (auto) 0.5 10 ^3/uL (0-1.3); Monocytes % (auto) 9.6 % (0.0-12.0); Neutrophils # (auto) 3.8 10 ^3/uL (1.6-8.6); Neutrophils % (auto) 72.1 % (37.0-80.0); Nucleated Red Blood Cells % 0.6 %; Red Blood Cells 6.46 10^6/uL (4.5-5.90); Red Cell Distribution Width 18.5 % (11.8-14.3); White Blood Cell 5.3 10^3/uL (4.4-10.8)
[2024-01-15 12:12] LABS: Alanine Aminotransferase 10 U/L (7-40); Albumin 3.9 g/dL (3.2-4.8); Alkaline Phosphatase 67 U/L (46-116); Aspartate Aminotransferase 30 U/L (13-40); BUN/Creatinine Ratio 17.8 (10.0-20.0); Blood Urea Nitrogen 16 mg/dL (9-23); Calcium 9.7 mg/dL (8.5-10.1); Chloride 98 mmol/L (98-107); Glucose 106 mg/dL (74-106); Potassium 3.8 mmol/L (3.5-5.1); Sodium 141 mmol/L (136-145)
[2024-01-15 12:13] LABS: Bilirubin, Total 1.6 mg/dL (0.2-1.0); Total Protein 6.8 g/dL (5.7-8.2)
[2024-01-15 12:16] LABS: Anion Gap 2.99999 (5-15)
[2024-01-15 12:19] LABS: Carbon Dioxide > 40 mmol/L (20-30)
[2024-01-16] VITALS (8 sets, daily range): BP systolic 141–152; BP diastolic 86–97; PULSE 66–89; RESP 16–20; TEMP 36.7; O2SAT 90–96
[2024-01-16 06:12] LABS: Anion Gap 6 (5-15); Calcium 9.6 mg/dL (8.7-10.4); Carbon Dioxide 38 mmol/L (20-30); Chloride 98 mmol/L (98-107); Potassium 4.2 mmol/L (3.5-5.1); Sodium 142 mmol/L (136-145)
[2024-01-16 06:14] LABS: Basophils # (auto) 0 10 ^3/uL (0-0.2); Basophils % (auto) 0.7 % (0.0-2.0); Eosinophils # (auto) 0.3 10 ^3/uL (0-0.8); Monocytes # (auto) 0.5 10 ^3/uL (0-1.3); Neutrophils # (auto) 3.8 10 ^3/uL (1.6-8.6); White Blood Cell 5.4 10^3/uL (4.4-10.8)
[2024-01-16 06:16] LABS: Eosinophils % (auto) 5.3 % (0.0-7.0); Hematocrit 51.2 % (41.0-53.0); Lymphocytes # (auto) 0.8 10 ^3/uL (0.4-5.4); Mean Corpuscular Hgb Conc. 31.3 g/dL (32.0-36.0); Monocytes % (auto) 9.7 % (0.0-12.0); Neutrophils % (auto) 70.3 % (37.0-80.0); Nucleated Red Blood Cells % 0.8 %; Red Blood Cells 6.17 10^6/uL (4.5-5.90); Red Cell Distribution Width 18.5 % (11.8-14.3)
[2024-01-16 06:18] LABS: BUN/Creatinine Ratio 19.3 (10.0-20.0); Blood Urea Nitrogen 17 mg/dL (9-23); Glucose 79 mg/dL (74-106)
[2024-01-16 06:19] LABS: Magnesium 2.1 mg/dL (1.6-2.6)
[2024-01-16] MEDS ORDERED: ASPI-325 PO ×2 (12:08→14:51)
[2024-01-16] MEDS ORDERED: FURO1TAB33 GT (12:08)
[2024-01-16] MEDS ORDERED: ATOR20TA50 PO ×2 (12:08→14:52)
[2024-01-16] MEDS ORDERED: SPIR25TA PO ×2 (12:08→14:51)
[2024-01-16] MEDS ORDERED: FURO20TA3 PO (14:51)
== END 2024-01-16 15:00 | disposition home or self-care (01) | DRG 133 ==
LOC: ER 01:09 → TELE-WESTW 03:36 → TELE 03:36 → TELE-WESTW 22:56
PROVIDERS: ADMIT Internal Medicine; ATTEND Internal Medicine Pulmonary Disease
PROC: 5A09357 Assistance with Respiratory Ventilation, Less than 24 Consecutive Hours, Continuous Positive Airway Pressure (ICD-10-PCS; principal; 2024-01-11)
PROC: 5A09357 Assistance with Respiratory Ventilation, Less than 24 Consecutive Hours, Continuous Positive Airway Pressure (ICD-10-PCS; 2024-01-12)
PROC: 5A09357 Assistance with Respiratory Ventilation, Less than 24 Consecutive Hours, Continuous Positive Airway Pressure (ICD-10-PCS; 2024-01-13)
PROC: 5A09357 Assistance with Respiratory Ventilation, Less than 24 Consecutive Hours, Continuous Positive Airway Pressure (ICD-10-PCS; 2024-01-14)
PROC: 5A09357 Assistance with Respiratory Ventilation, Less than 24 Consecutive Hours, Continuous Positive Airway Pressure (ICD-10-PCS; 2024-01-15)
PROC: 5A09357 Assistance with Respiratory Ventilation, Less than 24 Consecutive Hours, Continuous Positive Airway Pressure (ICD-10-PCS; 2024-01-16)
DX: J96.22 Acute and chronic respiratory failure with hypercapnia (principal); I50.33 Acute on chronic diastolic (congestive) heart failure; J81.0 Acute pulmonary edema; I21.A1 Myocardial infarction type 2; I11.0 Hypertensive heart disease with heart failure; I16.1 Hypertensive emergency; E66.2 Morbid (severe) obesity with alveolar hypoventilation; Z68.43 Body mass index [BMI] 50.0-59.9, adult; E78.5 Hyperlipidemia, unspecified; Z80.0 Family history of malignant neoplasm of digestive organs; Z82.3 Family history of stroke; Z79.82 Long term (current) use of aspirin; Z91.128 Patient's intentional underdosing of medication regimen for other reason
CPT/HCPCS: 36415; 36600; 71045; 78582; 80048; 80053; 80061; 80307; 81001; 82805; 83036; 83735; 83880; 84443; 84484; 85007; 85025; 85027; 85379; 93005; 93306; 93970; 94640; 94660; 99291; G0378; J1956; J3490